=== PATIENT | male | born 1940 | race Caucasian/White ===

== ENCOUNTER → 2023-06-27 11:10 | Outpatient (REF) | payer MEDICARE, SELFPAY ==
[2023-06-27 12:45] LABS: Albumin 3.9 g/dl (3.5-5.0); Blood Urea Nitrogen 36 mg/dl (9-20); Calcium 9.2 mg/dl (8.4-10.2); Carbon Dioxide 25 mmol/L (22-30); Chloride 104 mmol/L (98-107); Glucose 86 mg/dl (70-99); Phosphorus 3.2 mg/dl (2.5-4.5); Potassium 4.1 mmol/L (3.5-5.1); Sodium 139 mmol/L (135-145); eGFR 49.56
[2023-06-27 13:16] LABS: PSA, Total - Diagnostic 0.25 ng/ml (0.0-4.0)
== END ==
LOC: OLABPV 11:10
PROVIDERS: ATTENDING PHYSICIAN Specialist; FAMILY PHYSICIAN Internal Medicine
DX: C61 Malignant neoplasm of prostate (principal); E86.0 Dehydration
CPT/HCPCS: 36415; 80069; 84153

== ENCOUNTER → 2024-01-30 10:04 | Outpatient (REF) | payer MEDICARE, SELFPAY ==
[2024-01-30 10:28] LABS: % Basophils 0.4 % (0-2); % Immature Granulocytes 0.8 % (0-0.5); % Lymphocytes 26.4 % (20.5-51.1); % Monocytes 11.9 % (1.7-9.3); % Neutrophils 59.5 % (42.2-75.2); Absolute Eosinophils 0.1 10^3/uL (0-0.7); Absolute Lymphocytes 1.3 10^3/uL (1.2-3.4); Absolute Monocytes 0.6 10^3/uL (0.1-0.6); Absolute Neutrophils 2.9 10^3/uL (1.4-6.5); Hemoglobin 12.4 g/dL (13.0-18.0); Mean Corp Hgb Conc. 32.6 g/dL (33.0-37.0); Mean Corpuscular Hgb 32.2 pg (27.0-31.0); Mean Corpuscular Volume 98.7 fL (80.0-94.0); Mean Platelet Volume 10.8 fL (7.4-10.4); Nucleated Red Blood Cells % 0 % (-); Platelet Count 165 10^3/uL (130-400); Red Blood Cell Count 3.85 10^6/uL (4.70-6.10); Red Cell Dist. Width 12.3 % (11.5-14.5); White Blood Cell Count 4.9 10^3/uL (4.8-10.8)
[2024-01-30 10:40] LABS: ALT (SGPT) 11 U/L (0-50); AST (SGOT) 18 U/L (17-59); Albumin 3.8 g/dl (3.5-5.0); Alkaline Phosphatase 56 U/L (38-126); Blood Urea Nitrogen 32 mg/dl (9-20); Calcium 8.9 mg/dl (8.4-10.2); Carbon Dioxide 28 mmol/L (22-30); Chloride 104 mmol/L (98-107); Glucose 99 mg/dl (70-99); Potassium 3.8 mmol/L (3.5-5.1); Sodium 141 mmol/L (135-145); Total Protein 6.2 g/dl (6.3-8.2); eGFR 45.34
[2024-01-30 10:44] LABS: NT-proBNP 2000 pg/ml
[2024-01-30 11:08] LABS: PSA, Total - Screen 0.33 ng/ml (0.0-4.0); TSH Reflex To Free T4 2.56 uIU/ml (0.47-4.68)
[2024-01-30 11:27] LABS: Vitamin B12 394 pg/ml (239-931)
[2024-01-30 16:56] LABS: Urine Albumin Trace (Neg - Trace); Urine Bilirubin Negative (Negative); Urine Character Clear (Clear); Urine Color Yellow; Urine Glucose 3+ (Negative); Urine Ketone Negative (Negative); Urine Leukocyte Negative (Negative); Urine Nitrite Negative (Negative); Urine Occult Blood Negative (Negative); Urine Specific Gravity 1.015 (<1.030); Urine Urobilinogen Negative (Neg - 1+)
== END ==
LOC: OLABPV 10:04
PROVIDERS: ATTENDING PHYSICIAN Internal Medicine
DX: R63.4 Abnormal weight loss (principal); N18.31 Chronic kidney disease, stage 3a; R60.9 Edema, unspecified; G62.9 Polyneuropathy, unspecified; C61 Malignant neoplasm of prostate
CPT/HCPCS: 36415; 80053; 81003; 82607; 83880; 84443; 85025; G0103

== ENCOUNTER → 2024-05-14 11:01 | Outpatient (REF) | payer MEDICARE, SELFPAY ==
[2024-05-14 11:37] LABS: Albumin 3.9 g/dl (3.5-5.0); Blood Urea Nitrogen 37 mg/dl (9-20); Calcium 9.3 mg/dl (8.4-10.2); Carbon Dioxide 28 mmol/L (22-30); Chloride 104 mmol/L (98-107); Glucose 97 mg/dl (70-99); Phosphorus 3.4 mg/dl (2.5-4.5); Potassium 4.4 mmol/L (3.5-5.1); Sodium 137 mmol/L (135-145); eGFR 41.96
== END ==
LOC: OLABPV 11:01
PROVIDERS: ATTENDING PHYSICIAN Internal Medicine Cardiovascular Disease; FAMILY PHYSICIAN Internal Medicine
DX: I48.0 Paroxysmal atrial fibrillation (principal); N18.30 Chronic kidney disease, stage 3 unspecified
CPT/HCPCS: 36415; 80069

== ENCOUNTER → 2024-05-28 12:34 | Outpatient (REF) | payer MEDICARE, SELFPAY ==
[2024-05-28 13:38] LABS: Albumin 3.8 g/dl (3.5-5.0); Blood Urea Nitrogen 37 mg/dl (9-20); Calcium 8.7 mg/dl (8.4-10.2); Carbon Dioxide 26 mmol/L (22-30); Chloride 109 mmol/L (98-107); Glucose 90 mg/dl (70-99); Phosphorus 3.6 mg/dl (2.5-4.5); Potassium 4.2 mmol/L (3.5-5.1); Sodium 141 mmol/L (135-145); eGFR 45.34
== END ==
LOC: OLABPV 12:34
PROVIDERS: ATTENDING PHYSICIAN Internal Medicine Cardiovascular Disease
DX: I10 Essential (primary) hypertension (principal); N18.30 Chronic kidney disease, stage 3 unspecified; D64.9 Anemia, unspecified
CPT/HCPCS: 36415; 80069

== ENCOUNTER 2024-12-16 11:12 | Emergency (ER) | payer MEDICARE, SELFPAY ==
[2024-12-16 11:13] VITALS: BP 117/66
--- NOTE | 2024-12-16 11:41 | ED.GENMED ---
History of Present Illness
<Rd Jolly Jr., PA-C - Last Filed: 12/16/24 19:49>
General
Chief Complaint: Back Pain
Source: patient and spouse
Exam Limitations: none
Time Seen by Provider: 12/16/24 11:28
Nursing documentation reviewed up to this point in time: agreed with
History of Present Illness
History of Present Illness:
83-year-old male past medical history of A-fib currently on Eliquis presenting to the emergency department today with concerns of left-sided flank mid to lower back pain as well as left lower quadrant abdominal pain after a fall. He claims that he
was on the toilet slipped off hitting his back he initially tried to attend to this at home but symptoms have been worsening.. Pain has been progressive over the past 4 days since the initial incident occurred. Denies any changes in urination or
bowel movements. Denies any chest pain or shortness of breath. No numbness weakness or extremity discomfort.
Past History
<Rd Jolly Jr., PA-C - Last Filed: 12/16/24 19:49>
Past History
ED Past Medical History: Cancer (Prostate), GERD, HTN and Psychiatric (Depression)
ED Past Surgical History: Appendectomy and Orthopedic
Social History
Tobacco: Non-smoker
Alcohol: Daily
Personal: Other (Seperated)
Living: alone
Review of Systems
<Rd Jolly Jr., PA-C - Last Filed: 12/16/24 19:49>
Review of Systems
Allergies reviewed?: Yes
All Other Systems: ROS reviewed and negative except as documented in HPI and ROS
Phy Exam
<Rd Jolly Jr., PA-C - Last Filed: 12/16/24 19:49>
Physical Exam
Physical Exam:
GENERAL: Alert , in no apparent distress
EYE: pupils equal and reactive
NECK: Supple, no significant adenopathy.
ENT: o/p clr, mmm.
CARDIAC: Regular rate and rhythm .
LUNGS: Clear breath sounds bilaterally, no acute respiratory distress, no wheezes/rales/rhonchi
ABDOMEN: Ecchymosis throughout the left flank area as well as the left mid back with tenderness to the left lower ribs left CVA as well as the left flank region and left lower lateral abdominal pain. The remainder of the abdomen is soft, without
focal tenderness, no r/g, no cvat
NEUROLOGICAL: Alert and oriented, no focal neuro deficits
SKIN: Warm and dry, skin intact.
MUSCULOSKELETAL: No edema, well perfused.
PSYCH: Normal and appropriate interaction.
Course
<Rd Jolly Jr., PA-C - Last Filed: 12/16/24 19:49>
Orders/Labs/Results
Orders:
Orders
12/16/24 11:40
CT Chest/abd/pel W Iv Cont Urgent
Comment:
Reason For Exam: left mid to lower back pain after trauma, eliquis
12/16/24 12:03
CBC/With Diff [Complete Blood Count/With Diff] Urgent
CMP [Comprehensive Metabolic Panel] Urgent
Urinalysis Reflex To Culture Urgent
Date Specimen was Collected: 12/16/24
Time Specimen was Collected: 11:56
Urine Microscopic Reflex Cult Urgent
12/16/24 16:28
CT Cervical Spine W/o Iv Contr Urgent
Comment:
Reason For Exam: trauma
CT Head W/o Iv Contrast Urgent
Comment:
Reason For Exam: fall rib fx
12/16/24 19:41
Acetaminophen [Tylenol] 1,000 mg PO NOW STA
Abnormal Lab Results
12/16/24
12:03
WBC 4.5 L 10^3/uL
(4.8-10.8)
RBC 4.12 L 10^6/uL
(4.70-6.10)
MCV 98.1 H fL
(80.0-94.0)
MCH 31.8 H pg
(27.0-31.0)
MCHC 32.4 L g/dL
(33.0-37.0)
Abs Immat Gran (auto) 0.1 H 10^3/uL
(0-0.05)
Absolute Monos (auto) 0.7 H 10^3/uL
(0.1-0.6)
Immature Gran % 1.1 H %
(0-0.5)
Monocytes % 14.5 H %
(1.7-9.3)
Carbon Dioxide 31 H mmol/L
(22-30)
BUN 37 H mg/dl
(9-20)
Creatinine 1.8 H mg/dL
(0.7-1.3)
Glucose 116 H mg/dl
(70-99)
Ur Occult Blood Reflex 1+ A
(Negative)
Urine Bacteria (Reflex) Few A
(Negative)
Urine Glucose 3+ A
(Negative)
Urine Albumin (Reflex) 1+ A
(Neg - Trace)
12/16/24 12:03
12/16/24 12:03
Vital Signs
Initial and Last Documented VS:
Initial Vital Signs
Temp Pulse Resp BP Pulse Ox
97.5 F 68 20 117/66 99
12/16/24 11:13 12/16/24 11:13 12/16/24 11:13 12/16/24 11:13 12/16/24 11:13
Last Documented Vital Signs
Temp Pulse Resp BP Pulse Ox
97.5 F 65 18 148/83 95
12/16/24 11:13 12/16/24 19:00 12/16/24 19:00 12/16/24 16:13 12/16/24 15:18
<Sima Tay, DO - Last Filed: 12/16/24 16:51>
Orders/Labs/Results
Orders:
Orders
12/16/24 11:40
CT Chest/abd/pel W Iv Cont Urgent
Comment:
Reason For Exam: left mid to lower back pain after trauma, eliquis
12/16/24 12:03
CBC/With Diff [Complete Blood Count/With Diff] Urgent
CMP [Comprehensive Metabolic Panel] Urgent
Urinalysis Reflex To Culture Urgent
Date Specimen was Collected: 12/16/24
Time Specimen was Collected: 11:56
Urine Microscopic Reflex Cult Urgent
12/16/24 16:28
CT Cervical Spine W/o Iv Contr Urgent
Comment:
Reason For Exam: trauma
CT Head W/o Iv Contrast Urgent
Comment:
Reason For Exam: fall rib fx
12/16/24 19:41
Acetaminophen [Tylenol] 1,000 mg PO NOW STA
Abnormal Lab Results
12/16/24
12:03
WBC 4.5 L 10^3/uL
(4.8-10.8)
RBC 4.12 L 10^6/uL
(4.70-6.10)
MCV 98.1 H fL
(80.0-94.0)
MCH 31.8 H pg
(27.0-31.0)
MCHC 32.4 L g/dL
(33.0-37.0)
Abs Immat Gran (auto) 0.1 H 10^3/uL
(0-0.05)
Absolute Monos (auto) 0.7 H 10^3/uL
(0.1-0.6)
Immature Gran % 1.1 H %
(0-0.5)
Monocytes % 14.5 H %
(1.7-9.3)
Carbon Dioxide 31 H mmol/L
(22-30)
BUN 37 H mg/dl
(9-20)
Creatinine 1.8 H mg/dL
(0.7-1.3)
Glucose 116 H mg/dl
(70-99)
Ur Occult Blood Reflex 1+ A
(Negative)
Urine Bacteria (Reflex) Few A
(Negative)
Urine Glucose 3+ A
(Negative)
Urine Albumin (Reflex) 1+ A
(Neg - Trace)
12/16/24 12:03
12/16/24 12:03
Vital Signs
Initial and Last Documented VS:
Initial Vital Signs
Temp Pulse Resp BP Pulse Ox
97.5 F 68 20 117/66 99
12/16/24 11:13 12/16/24 11:13 12/16/24 11:13 12/16/24 11:13 12/16/24 11:13
Last Documented Vital Signs
Temp Pulse Resp BP Pulse Ox
97.5 F 65 18 148/83 95
12/16/24 11:13 12/16/24 19:00 12/16/24 19:00 12/16/24 16:13 12/16/24 15:18
<Rd Jolly Jr., PA-C - Last Filed: 12/16/24 19:49>
MDM/Problems Addressed
MDM/Problems Addressed:
83-year-old male presenting to the emergency department today with concerns of left flank mid back discomfort after a fall 3 days ago hitting that area. He is on Eliquis. Here he does have reproducible tenderness to left CVA left lower lateral as
well as the left lower posterior ribs. Considering the large area of discomfort significant ecchymosis and patient being on Eliquis trauma scan was ordered for further assessment. CT scan showing 5 rib fractures as well as pneumothorax. Case
discussed with trauma surgery at [facility] plan for transfer.
<Rd Jolly Jr., PA-C - Last Filed: 12/16/24 19:49>
*Pulse Oximetry
SaO2: 99
Oxygen Mode of Delivery: Room air
Patient hypoxic: no (95)
*Critical Care Note
Total Time (30-74mins, 75-104mins- exclusive of procedures): Not Applicable
ED Attending Note
<Rd Jolly Jr., PA-C - Last Filed: 12/16/24 19:49>
-
Portions of this chart may have been created with voice recognition software.� Occasional wrong word or��sound alike� substitutions may have occurred due to the inherent limitations of voice recognition software.
<Sima Tay DO - Last Filed: 12/16/24 16:51>
ED Attending Note
Patient seen and examined by attending physician: Yes
I performed the substantive portion of visit, reviewed & personally made and approve the management plan that is documented in note by myself or ISAIAH.: Yes
I performed a history and physical exam of patient and discussed management with resident, I reviewed resident's note and agree with documented findings and plan of care.: Yes
ED Attending Note:
83-year-old male with history of A-fib on [facility] presenting after a fall. Patient notes that he fell 5 days ago, tripped and fell onto the toilet onto his left side with subsequent pain to his left ribs. Denies significant difficulty breathing,
however pain with deep inspiration. Denies head injury or loss of consciousness. Denies any additional injuries. Vital signs on arrival are normal.
Patient initially seen and evaluated by physician underwriting assistant with appropriate workup including imaging of the chest. On my exam, lungs are clear to auscultation bilaterally with generalized tenderness to the left mid axillary rib region. CT is
concerning for multiple rib fractures, consistent with exam. There is also evidence of a small pneumothorax. Patient subsequent placed on supplemental O2. There is also mention of subcutaneous emphysema. Given traumatic injuries with
pneumothorax, will transfer to trauma center. Patient accepted to [facility] trauma. Patient hemodynamically stable for transfer
Discharge Plan
Departure
Patient Disposition: Acute Care Hospital
Date of Disposition: 12/16/24
Time of Disposition: 17:50
Patient with high blood pressure during this ER visit?: No
Condition: Fair
Covid-19: Not Applicable
Discharge Problem:
Multiple fractures of ribs, Pneumothorax
Prescriptions:
No Action
trazodone 50 MG tablet
50 mg PO HSPRN PRN (Reason: sleep)
bupropion HCl 100 MG tablet sustained-release 12 hr
100 mg PO DAILY
pantoprazole 40 MG tablet,delayed release (DR/EC)
40 mg PO DAILY
furosemide 20 mg Tablet
40 mg PO DAILY Qty: 60 0RF
psyllium Powder
1 tsp PO DAILY
cholecalciferol (vitamin D3) [Vitamin D3] 125 mcg (5,000 unit) Tablet
125 mcg PO DAILY
Eliquis 5 mg tablet
5 mg PO BID
acetaminophen [Tylenol Extra Strength] 500 mg tablet
1,000 mg PO Q6HPRN PRN (Reason: mild pain) Qty: 1 0RF
Farxiga 10 mg Tablet
10 mg PO DAILY
Patient Comments:
Pt just received yesterday, did not start taking
Referrals:
Jeffery Harrison MD [Family Provider, Internal Medicine]
Hospital Transfer
Other hospital: [facility]
I certify that the patient requires transfer: Yes
Discussed case with accepting physician: Yes
Reason for transfer: availability of service and specialties available
Interventions
Interventions:
*Risk Screen - Suicide Last Done: 12/16/24 11:58
*General Assessment Last Done: 12/16/24 11:13
*Neglect/Abuse Screening Last Done: 12/16/24 11:58
*ED- Fall Risk Assessment Last Done: 12/16/24 11:56
*ED COVID-19 Vaccine History Last Done: 12/16/24 11:56
*ED Influenza Vaccine History Last Done: 12/16/24 11:56
*Nursing Disposition Last Done: 12/16/24 19:22
ED-Musculoskeletal Assessment Last Done: 12/16/24 12:13
Discharge Date and Time
Print Language: BURMESE
[2024-12-16 11:56] VITALS: BMI 25.5
[2024-12-16 12:12] LABS: Urine Character Clear (Clear)
[2024-12-16 12:16] LABS: Hematocrit 40.4 % (39.0-52.0); Hemoglobin 13.1 g/dL (13.0-18.0); Mean Corp Hgb Conc. 32.4 g/dL (33.0-37.0); Mean Corpuscular Volume 98.1 fL (80.0-94.0); Nucleated Red Blood Cells % 0 % (-); Platelet Count 183 10^3/uL (130-400); Red Cell Dist. Width 12.2 % (11.5-14.5)
[2024-12-16 12:33] LABS: ALT (SGPT) 15 U/L (0-50); AST (SGOT) 23 U/L (17-59); Albumin 4.3 g/dl (3.5-5.0); Alkaline Phosphatase 67 U/L (38-126); Blood Urea Nitrogen 37 mg/dl (9-20); Calcium 9.2 mg/dl (8.4-10.2); Carbon Dioxide 31 mmol/L (22-30); Chloride 104 mmol/L (98-107); Estimated Creatinine Clearance 34 ml/min; Glucose 116 mg/dl (70-99); Potassium 4.5 mmol/L (3.5-5.1); Sodium 137 mmol/L (135-145); Total Protein 7.3 g/dl (6.3-8.2); eGFR 36.43
[2024-12-16 12:38] LABS: Urine Red Blood Cell 0-2 /HPF (0-2); Urine White Cell 0-2 /HPF (0-5)
[2024-12-16 15:18] VITALS: BP 136/82
[2024-12-16 16:13] VITALS: BP 148/83
[2024-12-16] MEDS: TYLENOL 1000 MG PO (19:48)
[2024-12-16 19:52] VITALS: BP 125/84
[2024-12-16 20:00] VITALS: BP 134/75
[2024-12-16 21:00] VITALS: BP 127/60
== END 2024-12-16 21:20 | disposition short-term general hospital (02) ==
LOC: EMR 11:12
PROVIDERS: Physician Assistant; EMERGENCY PHYSICIAN Student in an Organized Health Care Education/Training Program; FAMILY PHYSICIAN Internal Medicine
DX: S22.42XA Multiple fractures of ribs, left side, initial encounter for closed fracture (principal); S27.0XXA Traumatic pneumothorax, initial encounter; T79.7XXA Traumatic subcutaneous emphysema, initial encounter; W19.XXXA Unspecified fall, initial encounter; I48.91 Unspecified atrial fibrillation; I10 Essential (primary) hypertension; Z79.01 Long term (current) use of anticoagulants; Z90.49 Acquired absence of other specified parts of digestive tract; Z85.46 Personal history of malignant neoplasm of prostate
CPT/HCPCS: 99285; 70450; 71260; 72125; 74177; 80053; 81003; 81015; 85025; Q9967

== ENCOUNTER → 2025-02-18 12:38 | Outpatient (REF) | payer MEDICARE, SELFPAY ==
[2025-02-18 13:05] LABS: Hematocrit 31.6 % (39.0-52.0); Hemoglobin 10.7 g/dL (13.0-18.0); Mean Corp Hgb Conc. 33.9 g/dL (33.0-37.0); Mean Corpuscular Volume 93.5 fL (80.0-94.0); Nucleated Red Blood Cells % 0 % (-); Platelet Count 196 10^3/uL (130-400); Red Cell Dist. Width 12.3 % (11.5-14.5); Reticulocyte Count 1.2 % (0.4-2.8)
[2025-02-18 13:34] LABS: ALT (SGPT) 13 U/L (0-50); AST (SGOT) 18 U/L (17-59); Albumin 3.9 g/dl (3.5-5.0); Alkaline Phosphatase 85 U/L (38-126); Blood Urea Nitrogen 21 mg/dl (9-20); Calcium 8.7 mg/dl (8.4-10.2); Carbon Dioxide 26 mmol/L (22-30); Chloride 104 mmol/L (98-107); Glucose 95 mg/dl (70-99); HDL Cholesterol 52 mg/dl; LDL Cholesterol, Calculated 77 mg/dl; Potassium 3.8 mmol/L (3.5-5.1); Sodium 139 mmol/L (135-145); Total Protein 6.4 g/dl (6.3-8.2); Very Low Density Lipoprotein 13 mg/dl (0-30); eGFR 58.89
[2025-02-18 13:41] LABS: Urine Character Clear (Clear)
[2025-02-18 14:03] LABS: PSA, Total - Screen 0.24 ng/ml (0.0-4.0)
== END ==
LOC: OLABPV 12:38
PROVIDERS: ATTENDING PHYSICIAN Surgery; FAMILY PHYSICIAN Internal Medicine
DX: Z01.818 Encounter for other preprocedural examination (principal); Z85.46 Personal history of malignant neoplasm of prostate; I10 Essential (primary) hypertension; N18.30 Chronic kidney disease, stage 3 unspecified; E78.5 Hyperlipidemia, unspecified; R60.9 Edema, unspecified; D64.9 Anemia, unspecified
CPT/HCPCS: 80053; 80061; 81003; 81015; 84100; 85025; 85045; G0103